=== PATIENT | female | born 1990 | race Caucasian/White ===

== ENCOUNTER 2023-03-26 09:03 | Emergency (ER) | payer SELFPAY ==
[2023-03-26 09:15] VITALS: BP 116/84; PULSE 87; RESP 18; TEMP 37.1; O2SAT 99; BMI 27.2
--- NOTE | 2023-03-26 09:41 | EXP.UTC ---
Discharge Plan Disposition Patient Disposition: Home, Self-Care Condition: Good Prescriptions Prescriptions: New amoxicillin-pot clavulanate 875-125 mg Tablet 1 tab PO Q12H Qty: 20 0RF fluticasone propionate [Flonase Allergy Relief] 50 mcg/actuation spray,suspension 1 - 2 spray intranasal DAILY Qty: 16 0RF Rx Instructions: administer into each nostril methylprednisolone [Medrol (Jourdan)] 4 mg tablets,dose pack See Rx Instructions .Route .COMPLEX 6 Days Qty: 21 0RF Rx Instructions: taper pack; Referrals Follow up/Referrals: Provider,Referral, MD [Primary Care Provider] - See instructions Activity Restrictions/Add. Instructions Additional Instructions/Restrictions: *Monitor Temp, Over the counter Motrin or Tylenol as directed/as needed Tylenol every 4 hours and Motrin every 6 hours (as long as your family doctor has told you that you can take it) for fever or pain. and straight to ER if unable to lower temp less than 101.0 after medication given *Warm salt water gargles may help to soothe the throat *Throat Lozenges? *Warm fluids like tea with honey may help to soothe the throat? *Sleep elevated *Humidifier/Vaporizer *Flonase 2 sprays in each nostril daily but be aware that it may take 2-3 days before you notice improvement Follow up IMMEDIATELY for new or worsening symptoms or no Noticeable improvement over the next 48-72 hours. 911 for difficulty breathing or swallowing Clinical Impressions Clinical Impression: Sinusitis Qualifiers: Sinusitis location: unspecified location Chronicity: unspecified Qualified Code(s): J32.9 - Chronic sinusitis, unspecified Stand Alone Forms Stand Alone Forms: Work/School Release Instructions Patient Instructions: Sinusitis, Middle Ear Infection, DI for Sinusitis Discharge ED Provider: Bev Arias [facility] General Stated complaint: Fever, weakness, bodyaches Mode of Arrival: Ambulatory Source of Information: Patient Limitations: No Limitations Time Seen by Provider: 03/26/23 09:41 Description of Symptoms (Recalled from Triage Doc. by RN): PATIENT C/O FEVER, CHILLS, HEADACHE, AND SINUS PRESSURE SINCE SUNDAY HEENT Symptoms (Recalled from RN notes): Yes Resp Symptoms (Recalled from RN notes): No Skin Symptoms (Recalled from RN notes): No MS Symptoms (Recalled from RN notes): No Functional Status (Recalled from RN notes): WNL History of Present Illness Provider Complaint: Patient states that she has been having sinus pain and pressure, pain in her right ear, feeling achy with headache and low back ache States that she feels like she has a bad sinus infection or something but wants to get checked to make sure she doesnt have UTI or something also Related Data Previous Rx's Medication Instructions Recorded amoxicillin 875 mg-potassium 1 tab PO Q12H #20 tabs 03/26/23 clavulanate 125 mg tablet fluticasone propionate 50 1 - 2 spray intranasal DAILY #16 03/26/23 mcg/actuation nasal grams spray,suspension (Flonase Allergy Relief) methylprednisolone 4 mg tablets in See Rx Instructions .Route 03/26/23 a dose pack (Medrol (Jourdan)) .COMPLEX 6 days #21 tabs Allergies Allergy/AdvReac Type Severity Reaction Status Date / Time azithromycin Allergy Verified 03/26/23 09:30 Worker's Comp Is this a Worker's Comp case?: No [facility] Disclaimer: The information contained in this section may have been updated after the patient was seen, as this information can be updated by other users. Medical History (Updated 03/26/23 @ 10:03 by Bev Arias APRN) History of nephrolithotomy with removal of calculi Kidney stones Social History Smoking Status: Never smoker alcohol intake: never current occupational status: employed Travel in the last 8 weeks: None ROS Obtained: Yes All systems reviewed & no additional complaints except as documented and Yes Systems reviewed as appropriate & no additional complaint
[2023-03-26 10:00] LABS: Apearance,Urine Clear (Clear); Bilirubin,Urine Negative (Negative); Blood, Urine Trace (Negative); Color,Urine Yellow (Yellow); Glucose,Urine (UA) Negative (Negative); Ketones,Urine Negative (Negative); PH,Urine 6.5 (5.0-8.5); Protein,Urine Negative (Negative); UTC Leukocyte Esterase,Urine Negative (Negative); UTC Nitrate,Urine Negative (Negative); Urobilinogen,Urine 0.2 EU/dl (0.2)
[2023-03-26 10:05] VITALS: BP 116/84; PULSE 87; RESP 18; TEMP 37.1; O2SAT 99
[2023-03-26 10:10] LABS: UTC Pregnancy Test, Urine Negative (Negative)
== END 2023-03-26 10:08 | disposition home or self-care (01) ==
PROVIDERS: Emergency Provider Nurse Practitioner
DX: J01.90 Acute sinusitis, unspecified (principal); R50.9 Fever, unspecified; H92.01 Otalgia, right ear
CPT/HCPCS: 81003; 81025; 99204; 99212; G0463

== ENCOUNTER 2025-03-25 07:34 | Outpatient (CLI) | payer OTHER, SELFPAY ==
[2025-03-25 08:11] LABS: Basophils # 0.1 K/mm3 (0-0.2); Eosinophils # 0.2 Kmm3 (0.0-0.4); Eosinophils % 2.2 % (0.1-12.0); Hematocrit 39.7 % (37.0-47.0); Hemoglobin 13.6 g/dL (12.2-16.2); Immature Granulocytes # 0.01 10^3uL; Immature Granulocytes % 0.1 %; Lymphocytes # 3.2 K/mm3 (0.7-4.5); Lymphocytes % 43.7 % (10-50); Mean Corpuscular HGB Conc 34.3 g/dL (31.8-35.4); Mean Corpuscular Hemoglobin 31.7 pg (27.0-31.2); Mean Corpuscular Volume 92.5 fl (81-99); Mean Platelet Volume 9.3 fl (7.4-10.4); Monocytes # 0.5 K/mm3 (0.1-1.0); Monocytes % 7.1 % (1.7-9.3); Neutrophils # 3.4 K/mm3 (1.8-7.8); Neutrophils % 45.9 % (37.0-80.0); Nucleated Red Blood Cells # 0 10^3/uL; Nucleated Red Blood Cells % 0 %; Platelet Count 331 K/mm3 (142-424); Red Blood Count 4.29 M/mm3 (4.20-5.40); Red Cell Distribution Width 11.8 % (11.5-17.5); White Blood Count 7.3 K/mm3 (4.8-10.8)
[2025-03-25 08:59] LABS: Alanine Aminotransferase 19 U/L (12-78); Albumin Level 4.5 g/dl (3.5-5.0); Alkaline Phosphatase 77 U/L (38-126); Anion Gap 11.2 mEq/L (5-15); Aspartate Amino Transferase 25 U/L (14-36); Bilirubin,Total 0.7 mg/dl (0.2-1.3); Blood Urea Nitrogen 10 mg/dl (7-17); Calcium 9.1 mg/dl (8.4-10.2); Carbon Dioxide 23 mmol/L (22.0-30.0); Chloride 105 mmol/L (98-107); Estimated Glomerular Filt Rate 83 ml/min (>60); GFR (African American) 101 ML/MIN (>60); Globulin 2.3 g/dL (1.3-3.2); Glucose 80 mg/dl (74-100); Phosphorous 2.4 mg/dl (2.5-4.5); Potassium 4.2 mmoL/L (3.5-5.1); Sodium 135 mmol/L (136-145); Total Protein,Serum 6.8 g/dl (6.3-8.2)
[2025-03-25 09:17] LABS: 25-OH Vitamin D, Total 26.2 ng/mL (30-100)
[2025-03-25 09:47] LABS: Vitamin B12 925 pg/mL (239-931)
== END 2025-03-25 23:59 | disposition home or self-care (01) ==
LOC: LAB 07:36
PROVIDERS: PCP Family Medicine; Visit Provider Family Medicine
DX: R53.83 Other fatigue (principal)
CPT/HCPCS: 36415; 80053; 82306; 82607; 83735; 84100; 84443; 85025

== ENCOUNTER 2025-06-25 07:33 | Outpatient (CLI) | payer OTHER, SELFPAY ==
--- OUTSIDE RECORDS SUMMARY | 2025-02-25 11:15 | XMS_ITS ---
[facility] Organization [facility] Address [address] [facility] [address] [place] [id number] Care Team Providers Care Chemical Inspector Name Role Phone Jabari Ortiz Primary Care Provider Allergies Allergen (clinical drug ingredient) Drug/Non Drug Allergy documented on EMR Reaction Allergy Type Onset Date Status azithromycin Zithromax hives Drug Allergy Acti ve Results Component Value Reference Range Notes H-CBC Reviewed date:03/25/2025 09:08:11 AM Interpretation: Performing Lab: Notes/Report: H-CMP Reviewed date:03/25/2025 09:08:25 AM Interpretation: Performing Lab: Notes/Report: H-PHOS Reviewed date:03/25/2025 09:08:39 AM Interpretation: Performing Lab: Notes/Report: H-Magnesium Reviewed date:03/25/2025 09:08:53 AM Interpretation: Performing Lab: Notes/Report: REASON FOR VISIT med refill Medications Medication SIG (Take, Route, Fr equency, Duration) Notes Start Date End Date Status DULoxetine HCl 60 MG 1 capsule Orally On ce a day; Duration: 30 day(s) 02/25/2025 Active Problems Problem Type SNOMED Code ICD Code Onset Dates Problem Status W/U Status Risk Notes Problem Obesity (529101467) Non morbid obesity (E66.9) Active confirmed Problem Obese class II (272300300891 105) BMI 36.0-36.9,carol lt (Z68.36) Active confirmed Vital Signs Blood pressure systolic 114 mm Hg 02/26/20 25 Blood pressure diastolic 70 mm Hg 025 Heart Rate 101 /min 02/25/2025 Height 60.50 in 02/25/2025 Weight 188 lbs 02/25/2025 BMI 36.11 kg/m2 02/25/2025 Encounters Encounter Location Date Provider Diagnosis [facility] [address] [place] [phone] 02/25/2025 Jabari Ortiz DEMETRIUS (generalized anxiety disorder) F41.1 ; Fatigue, unspecified type R53.83 ; Non morbid obesity E66.9 and BMI 36.0-36.9,adult Z68.36 Assessments Encounter Date Diagnosis (ICD Code) Assessment Notes Treatment Notes Treatment Clinical Notes Section Notes 02/25/2025 DEMETRIUS (generalized anxiety disorder) (ICD-10 - F41.1) 02/25/2025 Fatigue, unspecified type (ICD-10 - R53.83) 02/25/2025 Non morbid obesity (ICD-10 - E66.9) 02/25/2025 BMI 36.0-36.9,adult (ICD-10 - Z68.36) Plan Of Treatment Medication Medication Name Sig Start Date Stop Date Notes Sertraline HCl 100 MG 1 tablet Orally Once a day DULoxetine HCl 60 MG 1 capsule Orally On ce a day; Duration: 30 day(s) 02/25/2025 Pending Test Test Name Order Date H-TSH 02/25/2025 H-VITAMIN D 02/25/2025 H-VITAMIN B12 02/25/2025 Next Appt Details Follow Up: 3 or 4 Weeks, Flora son: Provider Name:Jabari Bridges , 06/26/2025 02:00:00 PM, [address] [place] [address], [address] , [place], [place], [id number], Progress Notes * ROSARIO HERRDOB:1990 (34 yo F)Acc No.[id number]:02/25/2025 Progress Notes Patient: Melida ROSARIO VILLARREAL Provider: Melida Ortiz M.D. :1990 A ge:34 Y S ex:Female Date:02/25/2025 Address:[address] [place] [address] Subjective: * Chief Complaints: * 1 . Med refill. * HPI: P sychology: 34 year old female presents with c/o Anxiety P t here to f/u. Pt states she is doing well on Sertraline 100mg and doed need rf on it today. Pt states she does not have any concerns. * ROS: C ONSTITUTIONAL: Fatigue yes. D ERMATOLOGY: no R kalyan. n o H shai. G ASTROENTEROLOGY: no N ausea. n o V omiting. U ROLOGY: no D ifficulty urinating. n o B lood in urine. * Medical History: A nxiety disorder. * Surgical History: H ernia Repair , EGD , Kidney Stones 05/2008. * Hospitalization/Major Diagno stic Procedure: D enies Past Hospitalization. * Family History: F ather: alive, GERD with esophageal stricture. M other: alive, kidney stones. 3 sister(s) . . * Social History: C URRENT TOBACCO USE: No . C affeine: yes, frequency:tea. Home smoke detector use: yes. Marital Status: Single. Past smoking status: no. * Medications: T aking Sertraline HCl 100 MG Tablet 1 tablet Orally Once a day , Medication List reviewed and reconciled with the patient * Allergies: Z ithromax: hives. Objective: * Vitals: W t:188, Temp:98.0, BP:114/70, HR:101, Nurse:oralia, Ht: 60.50, BMI:36.11. * Examination: P sychology: General Appearance: N AD. G rooming : a dequate.?Eye contact : n ormal. M ood : p leasant. H eart: R SR. L ungs: c lear to auscultation. Assessment: * Assessment: 1. G AD (generalized anxiety disorder) - F41.1 (Primary) 2 . F atigue, unspecified type - R53.83 3 . N on morbid obesity - E66.9 4 . B VA 36.0-36.9,adult - Z68.36 Plan: * Treatment: 2. F atigue, unspecified type L AB: H-TSH L AB: H-VITAMIN D L AB: H-VITAMIN B12 L AB: H-CBC (Collection Date & Time - 03/25/2025) ?LAB: H-CMP (Collection Date & Time - 03/25/2025)* see duplicate order ?LAB: H-PHOS (Collection Date & Time - 03/25/2025)* see duplicate order ?LAB: H-Magnesium (Collection Date & Time - 03/25/2025)* see duplicate order * Procedure Codes: 3 074F SYST BP LT 130 MM HG, 3078F DIAST BP < 80 MM HG * Follow Up: 3 or 4 Weeks * Images: Billing Information: * Visit Code: 55050 Office Visit, Est Pt., Level 4. * Procedure Codes: 3074F SYST BP LT 130 MM HG. 3078F DIAST BP < 80 MM HG. * Electronic signature of Scarlett Ortiz MD on 06/25/2025 at 07:35 AM EDT Sign off status: Pending * Provider: Melida Ortiz M.D. Date: 0 02/25/2025 Generated for Lila ramírez/Feng/Susan on: 0 06/25/2025 07:35 AM EDT History and Physical Notes * HPI (History of Present Illness) Category Sub-Category Detail Notes Category Not es Psychology Anxiety Pt here to f/u. Pt states she is doing well on Sertraline 100mg and doed need rf on it today. Pt states she does not have any concerns Examination Category Sub-Category Detail Notes Category Not es Psychology Heart: RSR Lungs: clear to auscultatio n General Appearance: NAD Grooming : adequate Eye contact : normal Mood : pleasant
--- OUTSIDE RECORDS SUMMARY | 2025-03-27 10:30 | XMS_ITS ---
Author Organization [facility] Address [address] [facility] [address] [place] [id number] Care Team Providers Care Director Of Medical Education Name Role Phone [place], Jabari Primary Care Provider [phone] Allergies Allergen (clinical drug ingredient) Drug/Non Drug Allergy documented on EMR Reaction Allergy Type Onset Date Status azithromycin Zithromax hives Drug Allergy Acti ve REASON FOR VISIT 3-4 weeks Medications Medication SIG (Take, Route, Fr equency, Duration) Notes Start Date End Date Status DULoxetine HCl 60 MG 1 capsule Orally On ce a day; Duration: 90 days 02/25/2025 Active Problems Problem Type SNOMED Code ICD Code Onset Dates Problem Status W/U Status Risk Notes Problem Vitamin D deficiency (29462178) Vitamin D deficiency (E55.9) Active confirmed Vital Signs Blood pressure systolic 110 mm Hg 03/27/20 25 Blood pressure diastolic 72 mm Hg 025 Heart Rate 108 /min 03/27/2025 Height 60.50 in 03/27/2025 Weight 188.2 lbs 03/27/2025 BMI 36.15 kg/m2 03/27/2025 Encounters Encounter Location Date Provider Diagnosis [facility] [address] [place] [address] [facility] [address] [place] [phone] 03/27/2025 Jabari Ortiz DEMETRIUS (generalized anxiety disorder) F41.1 and Vitamin D deficiency E55.9 Assessments Encounter Date Diagnosis (ICD Code) Assessment Notes Treatment Notes Treatment Clinical Notes Section Notes 03/27/2025 DEMETRIUS (generalized anxiety disorder) (ICD-10 - F41.1) 03/27/2025 Vitamin D deficiency (ICD-10 - E55.9) Plan Of Treatment Medication Medication Name Sig Start Date Stop Date Notes DULoxetine HCl 60 MG 1 capsule Orally On ce a day; Duration: 90 days 02/25/2025 Next Appt Details Follow Up: 3 Months, Reason: Provider Name:Jabari Bridges ry, 06/26/2025 02:00:00 PM, [address] [facility] 36 [facility], [address], [place], [place], [id number], Progress Notes * ROSARIO HERRDOB:1990 (34 yo F)Acc No.[id number]:03/27/2025 Progress Notes Patient: ROSARIO BAKER Provider: Melida Ortiz M.D. :1990 A ge:34 Y S ex:Female Date:03/27/2025 Address:[address] [place] [address] Subjective: * Chief Complaints: * 1 . 3-4 weeks. * HPI: P sychology: 34 year old female presents with c/o Anxiety P t here to f/u. Pt started on Duloxetine 60mg 02/25. Pt states she is doing well on new medication. Pt states she did have to change the time she was taking it because she did not feel she was sleeping good at night. * ROS: D ERMATOLOGY: no R kalyan. n o H shai. G ASTROENTEROLOGY: no N ausea. n o V omiting. U ROLOGY: no D ifficulty urinating. n o B lood in urine. * Medical History: A nxiety . * Surgical History: H ernia Repair , [...] smoking status: no. * Medications: T aking DULoxetine HCl 60 MG Capsule Delayed Release Particles 1 capsule Orally Once a day , Medication List reviewed and reconciled with the patient * Allergies: Z ithromax: hives. Objective: * Vitals: W t: 188.2, Temp: 98.0, BP: 110/72, HR: 108, Nurse: oralia, Ht: 60.50, BMI:36.15. * Examination: P sychology: General Appearance: N AD. G rooming : a dequate.?Eye contact : n ormal. M ood : p leasant. H eart: R SR. L ungs: c lear to auscultation. Assessment: * Assessment: 1. G AD (generalized anxiety disorder) - F41.1 (Primary) 2 . V itamin D deficiency - E55.9 Plan: * Treatment: * Follow Up: 3 Months * Images: Billing Information: * Visit Code: 76857 Office Visit, Est Pt., Level 3. * Procedure Codes: * Electronic signature of Scarlett Ortiz MD on 06/25/2025 at 07:35 AM EDT Sign off status: Pending * Provider: Melida Ortiz M.D. Date: 0 03/27/2025 Generated for Lila ramírez/Feng/Bjitting on: 0 06/25/2025 07:35 AM EDT History and Physical Notes * HPI (History of Present Illness) Category Sub-Category Detail Notes Category Not es Psychology Anxiety Pt here to f/u. Pt started on Duloxetine 60mg 02/25. Pt states she is doing well on new medication. Pt states she did have to change the time she was taking it because she did not feel she was sleeping good at night Examination Category Sub-Category Detail Notes Category Not es Psychology Heart: RSR Lungs: clear to auscultatio n General Appearance: NAD Grooming : adequate Eye contact : normal Mood : pleasant
--- OUTSIDE RECORDS SUMMARY | 2025-06-22 06:49 | XMS_ITS ---
Author Organization [facility] Address [address] [facility] 36 [facility] [address] [place] [phone] Care Team Providers Care Frame Stylist Name Role Phone Jabari Ortiz Primary Care Provider [phone] REASON FOR VISIT Lab Order Problems Problem Type SNOMED Code ICD Code Onset Dates Problem Status W/U Status Risk Notes Problem Hypophosphatemia (4216156) Hypophosphatemia (E83.39) Active confirmed Encounters Encounter Location Date Provider Diagnosis [facility] [address] [place] [address] [facility] [address] [place] [phone] 06/22/2025 Jabari Ortiz Vitamin D deficiency E55.9 and Hypophosphatemia E83.39 Assessments Encounter Date Diagnosis (ICD Code) Assessment Notes Treatment Notes Treatment Clinical Notes Section Notes 06/22/2025 Vitamin D deficiency (ICD-10 - E55.9) 06/22/2025 Hypophosphatemia (ICD-10 - E83.39) Plan Of Treatment Pending Test Test Name Order Date H-VITAMIN D 06/22/2025 H-PHOS 06/22/2025 Next Appt Details Provider Name:Jabari Bridges ry, 06/26/2025 02:00:00 PM, [address] [place] [address] [facility], [address], [place], [phone], Progress Notes * ROSARIO HERRDOB:1990 (34 yo F)Acc No.[id number]:06/22/2025 Patient: Melida ROSARIO VILLARREAL :1990 A ge:34 Y S ex:Female Address:[address] [place] [address] Subjective: * Chief Complaints: * L ab Order * Medical History: * Surgical History: * Hospitalization/Major Diagno stic Procedure: * Medications: Objective: * Vitals: * Physical Examination: Assessment: * Assessment: 1. V itamin D deficiency - E55.9 (Primary) 2 . H ypophosphatemia - E83.39? Plan: * Treatment: 2. H ypophosphatemia L AB: H-PHOS * Procedure Codes: * true * Date: Generated for Lila ramírez/Feng/Bjitting on: 0 06/25/2025 07:36 AM EDT
--- OUTSIDE RECORDS SUMMARY | 2025-06-25 07:36 | XMS_ITS | Patient Health Record ---
Author Organization [facility] Address [address] [place] [facility] [address] [place] [phone] Care Team Providers Care Sitecore Developer Name Role Phone Jabari Ortiz Primary Care Provider [phone] Allergies Allergen (clinical drug ingredient) Drug/Non Drug [...] date:03/25/2025 09:08:53 AM Interpretation: Performing Lab: Notes/Report: H-TSH Reviewed date:03/25/2025 10:48:56 AM Interpretation:Normal Performing Lab: Notes/Report: TSH 3.20 0.465-4.68 uIU/mL H-CBC Reviewed date:03/25/2025 10:48:56 AM Interpretation:mch 31.7 Performing Lab: Notes/Report: WBC 7.3 4.8-10.8 K/mm3 RBC 4.29 4.20-5.40 M/mm3 HGB 13.6 12.2-16.2 g/dL HCT 39.7 37.0-47.0 % MCV 92.5 81-99 fl MCH 31.7 27.0-31.2 pg MCHC 34.3 31.8-35.4 g/dL RDW-SD 40.0 RDW 11.8 11.5-17.5 % PLT 331 142-424 K/mm3 MPV 9.3 7.4-10.4 fl NE% 45.9 37.0-80.0 % LY% 43.7 10-50 % MO% 7.1 1.7-9.3 % EO% 2.2 0.1-12.0 % BA% 1.0 0.1-2.0 % NRBC% 0 IG% 0.1 NE# 3.4 1.8-7.8 K/mm3 LY# 3.2 0.7-4.5 K/mm3 MO# 0.5 0.1-1.0 K/mm3 EO# 0.2 0.0-0.4 Kmm3 BA# 0.1 0-0.2 K/mm3 NRBC# 0 IG# 0.01 H-VITAMIN D Reviewed date:03/25/2025 10:48:57 AM Interpretation:26.2 Performing Lab: Notes/Report: TVITD 26.2 30-100 ng/mL Deficient <20 ng/mL Insufficient 20-30 ng/mL Sufficient 30-100 ng/mL Potential Toxicity >100 ng/mL H-CMP Reviewed date:03/25/2025 10:48:57 AM Interpretation:Na 135, a/g 2 Performing Lab: Notes/Report: NA 135 136-145 mmol/L K 4.2 3.5-5.1 mmoL/L CL 105 98-107 mmol/L CO2 23 22.0-30.0 mmol/L GAP 11.2 5-15 mEq/L BUN 10 7-17 mg/dl CREATT 0.80 0.52-1.04 mg/dl GFRAA 101 >60 ML/MIN EGFR 83 >60 ml/min GLU 80 74-100 mg/dl CA 9.1 8.4-10.2 mg/dl BILIT 0.7 0.2-1.3 mg/dl AST 25 14-36 U/L ALT 19 12-78 U/L TP 6.8 6.3-8.2 g/dl ALB 4.5 3.5-5.0 g/dl GLOB 2.3 1.3-3.2 g/dL AGRATIO 2.0 1.1-1.8 ALP 77 38-126 U/L H-PHOS Reviewed date:03/25/2025 10:48:57 AM Interpretation:2.4 Performing Lab: Notes/Report: PHOS 2.4 2.5-4.5 mg/dl H-Magnesium Reviewed date:03/25/2025 10:48:57 AM Interpretation:Normal Performing Lab: Notes/Report: MG 2.0 1.6-2.3 mg/dl H-VITAMIN B12 Reviewed date:03/25/2025 10:48:57 AM Interpretation:Normal Performing Lab: Notes/Report: VITB12 925 239-931 pg/mL Medications Medication SIG (Take, Route, Fr equency, Duration) Notes Start Date End Date Status DULoxetine HCl 60 MG 1 capsule Orally On ce a day; Duration: 90 days 02/25/2025 Active Immunizations Vaccine Route Administration Date Status Comme nts MMR Unknown 01/19/1998 Administered HEPB VACC PED/ADOL DOSE IM Unknown 12/21/1997 Administe red HEPB VACC PED/ADOL DOSE IM Unknown 01/19/1998 Administe red Problems Problem Type SNOMED Code ICD Code Onset Dates Problem Status W/U Status Risk Notes Problem Vitamin D deficiency (31593413) Vitamin D deficiency (E55.9) Active confirmed Problem Obese class II (439804140905467) BMI 36.0-36.9,adult (Z68.36) Active confirmed Problem Hypophosphatemia (4780654) Hypophosphatemia (E83.39) Active confirmed Problem Acute low back pain (finding) (932336918) Acute midline low back pain without sciatica (M54.5) Active confirmed Problem Generalized anxiety disorder (87639002) DEMETRIUS (generalized anxiety disorder) (F41.1) Active confirmed Problem Obesity (432660433) Non morbid o besity (E66.9) Active confirmed Vital Signs Heart Rate 108 /min 03/27/2025 Blood pressure diastolic 72 mm Hg 03/27/2025 Height 60.50 in 03/27/2025 Blood pressure systolic 110 mm Hg 03/27/2025 Weight 188.2 lbs 03/27/2025 BMI 36.15 kg/m2 03/27/2025 Encounters Encounter Location Date Provider Diagnosis [facility] [address] [place], [place] [phone] 08/25/2024 Jabari Clifton DEMETRIUS (generalized anx iety disorder) F41.1 [facility] [address] [place], [place] [phone] 02/25/2025 Jabari Clifton DEMETRIUS (generalized anx iety disorder) F41.1 ; Fatigue, unspecified type R53.83 ; Non morbid obesity E66.9 and BMI 36.0-36.9,adult Z68.36 [facility] [address] [facility] [address] [place], [place] [phone] 03/27/2025 Jabari Clifton DEMETRIUS (generalized anx iety disorder) F41.1 and Vitamin D deficiency E55.9 [facility] [address] [facility] [address] [place], [place] [phone] 03/25/2025 Jabari Clifton [facility] [address] [facility] [address] [place], [place] [phone] 04/07/2025 Jabari Clifton [facility] [address] [facility] [address] [place], [place] [phone] 06/22/2025 Jabari Clifton Vitamin D deficiency E55.9 and Hypophosphatemia E83.39 Assessments Encounter Date Diagnosis (ICD Code) Assessment Notes Treatment Notes Treatment Clinical Notes Section Notes 08/25/2024 DEMETRIUS (generalized anxiety disorder) (ICD-10 - F41.1) 06/22/2025 Vitamin D deficiency (ICD-10 - E55.9) 06/22/2025 Hypophosphatemia (ICD-10 - E83.39) 03/27/2025 Vitamin D deficiency (ICD-10 - E55.9) 03/27/2025 DEMETRIUS (generalized anxiety disorder) (ICD-10 - F41.1) 02/25/2025 Fatigue, unspecified type (ICD-10 - R53.83) 02/25/2025 DEMETRIUS (generalized anxiety disorder) (ICD-10 - F41.1) 02/25/2025 Non morbid obesity (ICD-10 - E66.9) 02/25/2025 BMI 36.0-36.9,adult (ICD-10 - Z68.36) Plan Of Treatment Pending Test Test Name Order Date H-TSH 02/25/2025 H-VITAMIN D 02/25/2025 H-VITAMIN D 06/22/2025 H-PHOS 06/22/2025 H-VITAMIN B12 02/25/2025 Next Appt Details Provider Name:Jabari Jacinto Yuliana ry, 06/26/2025 02:00:00 PM, [address], [address], [place], [place], [phone], Insurance Providers Payer Name Payer Address Payer Phone Subscriber Number Group Number Insured Name Patient Relationship to Insured Coverage Start Date Coverage End Date [facility] [address] [address] [place] [phone] [id number] ROSARIO HERR Self - patient is the insured Medical (General) History Medical History History ICD Code Anxiety Surgical History Surgery Date(Month/Year) Hernia Repair EGD Kidney Stones 05/2008
[2025-06-25 08:25] LABS: Phosphorous 2.5 mg/dl (2.5-4.5)
[2025-06-25 09:10] LABS: 25-OH Vitamin D, Total 44.1 ng/mL (30-100)
== END 2025-06-25 23:59 | disposition home or self-care (01) ==
LOC: LAB 07:34
PROVIDERS: PCP Family Medicine; Visit Provider Family Medicine
DX: E55.9 Vitamin D deficiency, unspecified (principal)
CPT/HCPCS: 36415; 82306; 84100